=== PATIENT | female | born 1945 | race Caucasian/White ===

== ENCOUNTER 2018-04-10 19:41 | Emergency (ER) | payer MEDICARE ==
[~2018-04-10] VITALS: Ht 165.1 cm; Wt 81.6 kg
[~2018-04-10 19:41] MED LIST: HYDROCODONE BIT1 T11 PO; MOBIC7.5 MG PO; PERCOCET 325 MG1 TA2 PO; XANAX0.25 MG PO
[2018-04-10 19:44] VITALS: BP 155/83
[2018-04-10] MEDS ORDERED: Motrin,Rufen800 MG PO (21:22)
== END 2018-04-10 21:33 | disposition home or self-care (01) ==
LOC: ED 19:41
DX: S63.502A Unspecified sprain of left wrist, initial encounter (principal); S99.922A Unspecified injury of left foot, initial encounter; Z88.0 Allergy status to penicillin; Z79.899 Other long term (current) drug therapy; W18.30XA Fall on same level, unspecified, initial encounter; Y93.89 Activity, other specified; Y92.89 Other specified places as the place of occurrence of the external cause; Y99.8 Other external cause status

== ENCOUNTER 2019-04-08 13:09 | Emergency (ER) | payer MEDICARE ==
[~2019-04-08] VITALS: Ht 165.1 cm; Wt 82.6 kg
[~2019-04-08 13:09] MED LIST changes: +Motrin,Rufen800 MG PO
[2019-04-08 13:54] LABS: BASO # 0.1 10*3/uL (0.0-0.1); BASO % 0.5 % (0.0-1.0); EOS # 0.2 10*3/uL (0.0-0.4); EOS % 1.7 % (1.0-4.0); HEMATOCRIT 41.8 % (37.0-47.0); LYMPH # 4.5 10*3/uL (1.3-4.4); LYMPH % 34.4 % (27.0-41.0); MEAN CELL VOLUME 91.3 fl (81.0-99.0); MEAN CORPUSCULAR HGB 30.6 pg (27.0-31.0); MEAN CORPUSCULAR HGB CONC 33.5 g/dl (33.0-37.0); MONO # 1.2 10*3/uL (0.1-1.0); MONO % 8.9 % (3.0-9.0); NEUT # 7.1 10*3/uL (2.3-7.9); NEUT % 54.1 % (47.0-73.0); PLATELET COUNT AUTOMATED 288 10*3/uL (130-400); RED BLOOD COUNT 4.58 10*6/uL (4.10-5.10); RED CELL DISTRI WIDTH 14.7 % (0-14.5); WHITE BLOOD COUNT 13.2 10*3/uL (4.8-10.8)
[2019-04-08 14:27] LABS: ALBUMIN 3.2 gm/dl (3.1-4.5); ALKALINE PHOSPHATASE 65 U/L (45-117); BUN 15 mg/dl (7-24); CHLORIDE 107 mmol/L (98-107); CREATININE 0.87 mg/dL (0.55-1.02); POTASSIUM 4.2 mmol/L (3.5-5.1); SGOT/AST 9 IU/L (3-35); SGPT/ALT 7 U/L (12-78); SODIUM 138 mmol/L (136-145); TOTAL PROTEIN 7.3 gm/dL (6.4-8.2)
[2019-04-08] MEDS ORDERED: KEFLEX500 M1 PO (15:03)
[2019-04-08 15:31] VITALS: BP 124/52
== END 2019-04-08 16:17 | disposition home or self-care (01) ==
LOC: ED 13:09
PROVIDERS: Emergency Medicine
DX: R91.1 Solitary pulmonary nodule (principal); J40 Bronchitis, not specified as acute or chronic; Z88.0 Allergy status to penicillin; Z88.5 Allergy status to narcotic agent; Z79.899 Other long term (current) drug therapy; Z90.710 Acquired absence of both cervix and uterus; Z90.49 Acquired absence of other specified parts of digestive tract

== ENCOUNTER → 2020-09-21 | Outpatient (CLI) | payer MEDICARE ==
[~2020-09-21] MED LIST changes: +KEFLEX500 M1 PO
== END | disposition home or self-care (01) ==
LOC: COVID19 13:30
PROVIDERS: ATTEND Internal Medicine
DX: Z20.828 Contact with and (suspected) exposure to other viral communicable diseases (principal)

== ENCOUNTER → 2021-01-21 | Outpatient (CLI) | payer MEDICARE ==
[2021-01-21 10:42] LABS: ALBUMIN 3.2 gm/dl (3.1-4.5); BILIRUBIN, DIRECT 0.1 mg/dL (0.0-0.2); BUN 12 mg/dl (7-24); CHLORIDE 106 mmol/L (98-107); CHOLESTEROL 237 mg/dL (<200); CREATININE 1.03 mg/dL (0.55-1.02); POTASSIUM 3.8 mmol/L (3.5-5.1); SGOT/AST 13 IU/L (3-35); SGPT/ALT 10 U/L (12-78); SODIUM 141 mmol/L (136-145); TRIGLYCERIDES 119 mg/dl (<150); VLDL CHOLESTEROL 24 mg/dL (6-40)
[2021-01-21 10:43] LABS: ALKALINE PHOSPHATASE 61 U/L (45-117); IRON 83 ug/dL (50-170); TOTAL IRON BINDING CAPACITY 259 ug/dl (250-450); TOTAL PROTEIN 7.2 gm/dL (6.4-8.2)
[2021-01-21 10:51] LABS: HDL CHOLESTEROL 64 mg/dl (40-60); LDL CHOLESTEROL 149 mg/dL (9-159)
== END | disposition home or self-care (01) ==
LOC: LAB 10:02
PROVIDERS: ATTEND Internal Medicine
DX: E03.9 Hypothyroidism, unspecified (principal); E27.40 Unspecified adrenocortical insufficiency; E66.01 Morbid (severe) obesity due to excess calories; E55.9 Vitamin D deficiency, unspecified; R53.82 Chronic fatigue, unspecified; M25.50 Pain in unspecified joint; Z79.899 Other long term (current) drug therapy

== ENCOUNTER → 2021-05-30 | Outpatient (CLI) | payer MEDICARE ==
[2021-05-30 12:31] LABS: ALBUMIN 3.1 gm/dl (3.1-4.5); BUN 16 mg/dl (7-24); CHLORIDE 105 mmol/L (98-107); CREATININE 0.89 mg/dL (0.55-1.02); POTASSIUM 3.8 mmol/L (3.5-5.1); SODIUM 139 mmol/L (136-145)
[2021-05-30 12:36] LABS: FREE T4 1.22 ng/dl (0.76-1.46)
[2021-05-30 12:42] LABS: THYROID STIM HORMONE (HS) 0.951 uIU/ml (0.358-4.75)
== END | disposition home or self-care (01) ==
LOC: LAB 12:08
PROVIDERS: ATTEND Internal Medicine
DX: R53.83 Other fatigue (principal); E03.9 Hypothyroidism, unspecified; E55.9 Vitamin D deficiency, unspecified

== ENCOUNTER → 2021-07-04 | Outpatient (CLI) | payer MEDICARE | END | disposition home or self-care (01) | LOC: COVID19 16:16 | PROVIDERS: ATTEND Internal Medicine | DX: Z11.52 Encounter for screening for COVID-19 (principal) ==

== ENCOUNTER → 2022-02-18 | Outpatient (CLI) | payer MEDICARE ==
[2022-02-18 14:15] LABS: TOTAL PROTEIN 6.9 gm/dL (6.4-8.2)
== END | disposition home or self-care (01) ==
LOC: LAB 11:28
PROVIDERS: ATTEND Physician Assistant
DX: C34.32 Malignant neoplasm of lower lobe, left bronchus or lung (principal); E78.00 Pure hypercholesterolemia, unspecified; E03.9 Hypothyroidism, unspecified; G45.9 Transient cerebral ischemic attack, unspecified

== ENCOUNTER → 2022-03-23 | Outpatient (CLI) | payer MEDICARE | END | disposition home or self-care (01) | LOC: RAD 11:53 | PROVIDERS: ATTEND Psychiatry & Neurology Neurology | DX: M43.12 Spondylolisthesis, cervical region (principal); G44.86 Cervicogenic headache; M47.812 Spondylosis without myelopathy or radiculopathy, cervical region ==

== ENCOUNTER → 2022-06-12 | Outpatient (CLI) | payer MEDICARE ==
[2022-06-12 12:32] LABS: BASO # 0.1 10*3/uL (0.0-0.1); BASO % 0.5 % (0.0-1.0); EOS # 0.2 10*3/uL (0.0-0.4); EOS % 1.5 % (1.0-4.0); HEMATOCRIT 43.2 % (37.0-47.0); LYMPH # 3.9 10*3/uL (1.3-4.4); LYMPH % 27.9 % (27.0-41.0); MEAN CELL VOLUME 90.8 fl (81.0-99.0); MEAN CORPUSCULAR HGB 29.6 pg (27.0-31.0); MEAN CORPUSCULAR HGB CONC 32.6 g/dl (33.0-37.0); MEAN PLATELET VOLUME 10.6 fl (9.6-12.3); MONO # 1.2 10*3/uL (0.1-1.0); MONO % 8.6 % (3.0-9.0); NEUT # 8.5 10*3/uL (2.3-7.9); PLATELET COUNT AUTOMATED 303 10*3/uL (130-400); RED BLOOD COUNT 4.76 10*6/uL (4.10-5.10); RED CELL DISTRI WIDTH 14.8 % (0-14.5); RETICULOCYTE % 1.55 % (0.50-2.50)
[2022-06-12 12:47] LABS: ALKALINE PHOSPHATASE 74 U/L (45-117); BUN 20 mg/dl (7-24); CHLORIDE 108 mmol/L (98-107); CREATININE 0.88 mg/dL (0.55-1.02); IRON 58 ug/dL (50-170); LDH 160 U/L (84-246); POTASSIUM 4.4 mmol/L (3.5-5.1); SGOT/AST 13 IU/L (3-35); SGPT/ALT 9 U/L (12-78); SODIUM 141 mmol/L (136-145); T3 UPTAKE 34 % (31-39); TOTAL PROTEIN 7.2 gm/dL (6.4-8.2)
[2022-06-12 12:53] LABS: FREE T4 0.83 ng/dl (0.76-1.46)
[2022-06-12 13:34] LABS: VITAMIN D, 25-HYDROXY 22.5 ng/mL (30-100)
[2022-06-12 13:35] LABS: FERRITIN 52.1 ng/mL (10.0-291.0)
== END | disposition home or self-care (01) ==
LOC: LAB 12:04
PROVIDERS: ATTEND Physician Assistant
DX: C34.32 Malignant neoplasm of lower lobe, left bronchus or lung (principal); E78.00 Pure hypercholesterolemia, unspecified; E03.9 Hypothyroidism, unspecified; G45.9 Transient cerebral ischemic attack, unspecified

== ENCOUNTER → 2022-07-29 | Outpatient (CLI) | payer MEDICARE ==
[2022-07-29 08:23] LABS: BUN 20 mg/dl (7-24); CREATININE 1.02 mg/dL (0.55-1.02)
== END | disposition home or self-care (01) ==
LOC: LAB 07:29
PROVIDERS: ATTEND Internal Medicine Endocrinology, Diabetes & Metabolism
DX: E27.40 Unspecified adrenocortical insufficiency (principal); E03.9 Hypothyroidism, unspecified

== ENCOUNTER → 2022-10-14 | Outpatient (CLI) | payer MEDICARE | END | disposition home or self-care (01) | LOC: LAB 11:39 | PROVIDERS: ATTEND Internal Medicine Endocrinology, Diabetes & Metabolism | DX: E03.9 Hypothyroidism, unspecified (principal); R70.0 Elevated erythrocyte sedimentation rate; E27.40 Unspecified adrenocortical insufficiency ==

== ENCOUNTER → 2023-02-10 | Outpatient (CLI) | payer MEDICARE ==
[2023-02-10 12:25] LABS: ALKALINE PHOSPHATASE 66 U/L (46-116); BUN 14 mg/dl (9-23); CHLORIDE 104 mmol/L (98-107); CHOLESTEROL 227 mg/dL (<200); LDL CHOLESTEROL 134 mg/dL (9-159); POTASSIUM 4.4 mmol/L (3.4-5.1); SGPT/ALT < 7 U/L (10-49); TOTAL PROTEIN 7.1 gm/dL (6.0-8.0); TRIGLYCERIDES 118 mg/dl (<150)
[2023-02-10 12:53] LABS: THYROID STIM HORMONE (HS) 14.615 uIU/ml (0.550-4.780)
== END | disposition home or self-care (01) ==
LOC: LAB 11:26
PROVIDERS: Physician Assistant; ATTEND Internal Medicine Endocrinology, Diabetes & Metabolism
DX: C34.32 Malignant neoplasm of lower lobe, left bronchus or lung (principal); E78.00 Pure hypercholesterolemia, unspecified; E03.9 Hypothyroidism, unspecified; G45.9 Transient cerebral ischemic attack, unspecified; R09.81 Nasal congestion

== ENCOUNTER → 2023-05-19 | Outpatient (CLI) | payer MEDICARE ==
[2023-05-19 15:06] LABS: VITAMIN D, 25-HYDROXY 36.1 ng/mL (30-100)
== END | disposition home or self-care (01) ==
LOC: LAB 13:58
PROVIDERS: ATTEND Internal Medicine Endocrinology, Diabetes & Metabolism
DX: E55.9 Vitamin D deficiency, unspecified (principal); E53.8 Deficiency of other specified B group vitamins; E27.40 Unspecified adrenocortical insufficiency; E03.9 Hypothyroidism, unspecified

== ENCOUNTER → 2023-09-06 | Outpatient (CLI) | payer MEDICARE | END | disposition home or self-care (01) | LOC: LAB 10:51 | PROVIDERS: ATTEND Internal Medicine Endocrinology, Diabetes & Metabolism | DX: E03.9 Hypothyroidism, unspecified (principal); E53.8 Deficiency of other specified B group vitamins; E55.9 Vitamin D deficiency, unspecified; E27.40 Unspecified adrenocortical insufficiency ==

== ENCOUNTER → 2023-12-02 | Outpatient (CLI) | payer MEDICARE | END | disposition home or self-care (01) | LOC: LAB 14:36 | PROVIDERS: ATTEND Internal Medicine Endocrinology, Diabetes & Metabolism | DX: E03.9 Hypothyroidism, unspecified (principal); E78.5 Hyperlipidemia, unspecified; E53.8 Deficiency of other specified B group vitamins; E27.40 Unspecified adrenocortical insufficiency ==

== ENCOUNTER → 2024-01-28 | Outpatient (CLI) | payer MEDICARE | END | disposition home or self-care (01) | LOC: LAB 10:28 | PROVIDERS: ATTEND Internal Medicine Endocrinology, Diabetes & Metabolism | DX: E27.40 Unspecified adrenocortical insufficiency (principal); E03.9 Hypothyroidism, unspecified; E53.8 Deficiency of other specified B group vitamins; E55.9 Vitamin D deficiency, unspecified ==

== ENCOUNTER → 2024-06-19 | Outpatient (CLI) | payer MEDICARE ==
[2024-06-19 14:48] LABS: VITAMIN D, 25-HYDROXY 39.9 ng/mL (30-100)
== END | disposition home or self-care (01) ==
LOC: LAB 13:51
PROVIDERS: ATTEND Internal Medicine Endocrinology, Diabetes & Metabolism
DX: E03.9 Hypothyroidism, unspecified (principal); E55.9 Vitamin D deficiency, unspecified; E53.8 Deficiency of other specified B group vitamins; E27.40 Unspecified adrenocortical insufficiency

== ENCOUNTER → 2025-04-06 | Outpatient (CLI) | payer MEDICARE | END | disposition home or self-care (01) | LOC: RAD 10:10 | PROVIDERS: ATTEND Student in an Organized Health Care Education/Training Program | DX: M81.0 Age-related osteoporosis without current pathological fracture (principal) ==

== ENCOUNTER → 2025-09-04 | Outpatient (CLI) | payer MEDICARE ==
[2025-09-04 14:26] LABS: BUN 18 mg/dl (9-23)
[2025-09-04 14:29] LABS: SGPT/ALT < 7 U/L (5-49)
== END | disposition home or self-care (01) ==
LOC: LAB 11:53
PROVIDERS: ATTEND Student in an Organized Health Care Education/Training Program
DX: E03.9 Hypothyroidism, unspecified (principal); E27.40 Unspecified adrenocortical insufficiency; Z79.899 Other long term (current) drug therapy